=== PATIENT | male | born 1985 | race Caucasian/White ===

== ENCOUNTER → 2019-01-29 | Outpatient (CLI) | payer OTHER ==
--- NOTE | 2019-01-30 03:33 | REP ---
Clinical: Pain. Technique: AP, lateral, bilateral oblique views of the left ankle. Comparison: 12/05/2009 Findings: Old healed fractures of the distal fibula and tibial are appreciated with associated arthritic, post traumatic degenerative changes noted. No obvious acute fracture or dislocation identified. 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 No acute fracture dislocation. Electronically Signed by Tristan Polo MD 01/30/2019 03:26 A
== END ==
LOC: M ADAMS 10:56
PROVIDERS: ATTEND Physician Assistant
DX: M19.072 Primary osteoarthritis, left ankle and foot (principal)

== ENCOUNTER → 2022-08-16 | Outpatient (CLI) | payer OTHER | LOC: M WUC 10:06 | PROVIDERS: ATTEND Physician Assistant | DX: S90.32XA Contusion of left foot, initial encounter (principal); S80.12XA Contusion of left lower leg, initial encounter; S90.02XA Contusion of left ankle, initial encounter ==

== ENCOUNTER → 2022-08-21 | Outpatient (CLI) | payer BC ==
[~2022-08-21] MED LIST: PROHANCE 279.3MG/ML 5ML VIAL As Ordered ONE
== END ==
LOC: M RAD 09:52
PROVIDERS: ATTEND Physician Assistant
DX: S93.402A Sprain of unspecified ligament of left ankle, initial encounter (principal)
CPT/HCPCS: 73700; A9576

== ENCOUNTER → 2025-09-03 | Outpatient (REF) | payer BC ==
[2025-09-03 14:03] LABS: PLATELET COUNT, AUTOMATED 256 10^3/uL (150-450)
[2025-09-03 14:15] LABS: ESTIMATED AVERAGE GLUCOSE 105.0 MG/DL (60-110)
[2025-09-03 14:33] LABS: ALT/SGPT 23 U/L (7.0-40); AST/SGOT 14 U/L (<34); CALCIUM LEVEL 8.9 MG/DL (8.5-10.1); CARBON DIOXIDE LEVEL 31 MMOL/L (20-31); CHLORIDE LEVEL 104 MMOL/L (98-107); CHOLESTEROL LEVEL 166 MG/DL (<200); CHOLESTEROL RISK RATIO 4.08 (<5); CREATININE FOR GFR 0.90 MG/DL (0.70-1.30); GLOMERULAR FILTRATION RATE > 90.0 (>60); LDL CHOLESTEROL 110.4 MG/DL (<100); NON-HDL-C 125.4 MG/DL; POTASSIUM SERUM 4.6 MMOL/L (3.5-5.1); SODIUM LEVEL 141 MMOL/L (136-145); TRIGLYCERIDES LEVEL 75 MG/DL (<150)
== END ==
LOC: M SFHCADAM 10:12
PROVIDERS: ATTEND Family Medicine
DX: M19.072 Primary osteoarthritis, left ankle and foot (principal); Z13.1 Encounter for screening for diabetes mellitus; Z13.220 Encounter for screening for lipoid disorders